=== PATIENT | male | born 1965 | race Caucasian/White ===

== ENCOUNTER 2018-02-21 02:01 | Day surgery (SDC) | payer OTHER ==
[~2018-02-21] VITALS: Ht 170.2 cm; Wt 83.9 kg
[~2018-02-21 02:01] MED LIST: CALC600T63 PO; CHOL10005 PO; CIDE300T4 PO; FISH1CAP15 PO; GLUC100026 PO; LACT1CAP9 PO; LISI20TA29 PO; MAGN250T34 PO; MULT-67 PO
[2018-02-21 07:28] VITALS: BP 130/87
[2018-02-21] MEDS ORDERED: PROPOFOL EMUL(*) 10MG/ML 20 ML 40 ML ONE (07:43)
[2018-02-21] MEDS ORDERED: LIDOCAINE MPF 1% 5 ML VIAL ONE (07:43)
[2018-02-21] MEDS ORDERED: NORMOSOL R SOLN(*) 1000 ML BAG 1,000 ML IV PRN (07:55)
[2018-02-21] MEDS ORDERED: LIDOCAINE/SOD BICARB 8.4% SYR ID ONE (07:55)
[2018-02-21 08:49] VITALS: BP 111/72
[2018-02-21 09:09] VITALS: BP 100/60
[2018-02-21 09:28] VITALS: BP 126/84
[2018-02-21 09:30] VITALS: BP 124/95
== END 2018-02-21 09:40 | disposition home or self-care (01) ==
LOC: OR 02:01
PROVIDERS: ATTEND Family Medicine
DX: Z12.11 Encounter for screening for malignant neoplasm of colon (principal)
CPT/HCPCS: 00812; 45378; J2001; J2704